=== PATIENT | female | born 1960 | race Hispanic/Latino ===

== ENCOUNTER → 2017-05-28 | Outpatient (CLI) | payer BC ==
--- NOTE | 2017-05-28 14:48 | Diagnostic Imaging Report ---
EXAM: DXA BONE DENSITY INDICATIONS: Postmenopausal screening COMPARISON: None. FINDINGS: Left femoral neck bone mineral density (BMD) (g/cm2):0.645 Femur T-score (standard deviation relative to young adult mean BMD): -1.9 Femur Z-score (standard deviation relative to age-matched control group):-0.7 Lumbar bone mineral density (BMD) (g/cm2):0.731 Lumbar T-score (standard deviation relative to young adult mean BMD): -2.9 Lumbar Z-score (standard deviation relative to age-matched control group):-1.5 CONCLUSION: WHO bone mineral classification: Osteoporosis. Consider followup DEXA in one year to evaluate treatment response. World Health Organization Classification: *The Z-score is provided for informational purposes. The T-score is preferable for clinical decisions. When comparing exams, a change of >4% is considered statistically significant. SUGGESTED RECOMMENDATIONS: Normal \T\ Low Bone Mass: Calcium supplementation, daily multiple vitamins, and adequate exercise as preventive measures against osteoporosis. Osteoporosis \T\ Severe Osteoporosis:In addition to the above, pharmacologic therapy. Dictated by: Too Dejesus M.D. on 05/28/2017 at 14:57 Electronically approved by: Too Dejesus M.D. on 05/28/2017 at 14:57
--- NOTE | 2017-06-02 16:20 | Diagnostic Imaging Report ---
#[id number] - MGSCRBIL #BILATERAL DIGITAL SCREENING MAMMOGRAM WITH CAD: 05/28/2017 CLINICAL: Routine screening. Comparison is made to exams dated: 05/22/2016 mammogram, 08/13/2014 mammogram and 10/20/2011 mammogram - [facility]. Current study contains 4 films. The tissue of both breasts is heterogeneously dense. This may lower the sensitivity of mammography. Current study was also evaluated with a Computer Aided Detection (CAD) system. There are benign calcifications in both breasts. No significant masses, calcifications, or other findings are seen in either breast. There has been no significant interval change. IMPRESSION: BENIGN There is no mammographic evidence of malignancy. A 1 year screening mammogram is recommended. The patient will be notified by letter of the results. Maximino johnson/diana:06/02/2017 13:05:28 Certified Caregiver: Shelly KIDD(R)(M), [facility] letter sent: Compared to Prior B9 Mammogram BI-RADS: 2 Benign
== END ==
LOC: DX 13:01
PROVIDERS: ATTEND Obstetrics & Gynecology
DX: Z12.31 Encounter for screening mammogram for malignant neoplasm of breast (principal); Z13.820 Encounter for screening for osteoporosis
CPT/HCPCS: 77080; G0202

== ENCOUNTER → 2018-06-20 | Outpatient (CLI) | payer BC | LOC: MAMMO 10:57 | PROVIDERS: ATTEND Obstetrics & Gynecology | DX: Z12.31 Encounter for screening mammogram for malignant neoplasm of breast (principal) | CPT/HCPCS: 77067 ==

== ENCOUNTER → 2024-03-02 | Day surgery (SDC) | payer OTHER ==
[2024-02-25 12:06] LABS: BASOPHILS % 0.5 % (0.0-1.0); EOSINOPHILS # (AUTO) 0.3 (0.0-0.4); EOSINOPHILS % 5.1 % (0.0-6.0); HEMATOCRIT 42.2 % (34.2-44.1); HEMOGLOBIN 14.2 g/dL (12.0-16.0); LYMPHOCYTES # (AUTO) 1.7 (1.0-3.2); LYMPHOCYTES % 30.7 % (18.0-39.1); MEAN CORPUSCULAR HEMOGLOBIN 31.8 pg (28-32); MEAN CORPUSCULAR HGB CONC 33.6 g/dL (31-35); MEAN CORPUSCULAR VOLUME 94.6 fL (81-99); MONOCYTES # (AUTO) 0.5 (0.2-0.8); MONOCYTES % 9.3 % (4.4-11.3); NEUTROPHILS % 54.2 % (38.7-80.0); PLATELET COUNT 106 x10e3/uL (140-360); RED BLOOD COUNT 4.46 x10e6/uL (3.6-5.1); WHITE BLOOD COUNT 5.47 x10e3/uL (4.8-10.8)
[~2024-03-02] MED LIST: BRAIN MIGHT-DH1 EACH PO; PROPOFOL IV EMULSION 10 MG/ML 50 ML VIAL IV ONE; VIT C PO
[2024-03-02] MEDS: LACTATED RINGER'S 1,000 ML ONE (09:19)
[2024-03-02 13:25] VITALS: BP 145/87; PULSE 75; RESP 16; TEMP 97.5; O2SAT 98
== END | disposition home or self-care (01) ==
LOC: OR 08:12
PROVIDERS: ATTEND Internal Medicine Gastroenterology
DX: Z09 Encounter for follow-up examination after completed treatment for conditions other than malignant neoplasm (principal); D12.3 Benign neoplasm of transverse colon; K57.30 Diverticulosis of large intestine without perforation or abscess without bleeding; K64.8 Other hemorrhoids; K21.9 Gastro-esophageal reflux disease without esophagitis; Z01.810 Encounter for preprocedural cardiovascular examination; Z01.812 Encounter for preprocedural laboratory examination; Z68.26 Body mass index [BMI] 26.0-26.9, adult; Z85.42 Personal history of malignant neoplasm of other parts of uterus; Z87.891 Personal history of nicotine dependence
CPT/HCPCS: 36415; 45385; 85025; 88305; 93005; J2704; J7121